=== PATIENT | female | born 1990 | race Caucasian/White ===

== ENCOUNTER 2019-02-06 14:00 | Inpatient (IN) | payer OTHER ==
[~2019-02-06] VITALS: Ht 157.5 cm; Wt 69.9 kg
[2019-02-11] MEDS ORDERED: PRENATAL TABLE1 EACH PO (13:34)
[2019-02-11] MEDS ORDERED: SYNTHROID50 MCG PO (13:35)
== END 2019-02-13 16:04 | disposition home or self-care (01) | DRG 768 ==
LOC: OB/GYN 02-11 11:50 → LDR 02-11 11:50 → OB/GYN 02-11 20:23
PROVIDERS: ADMIT Obstetrics & Gynecology
PROC: 10E0XZZ Delivery of Products of Conception, External Approach (ICD-10-PCS; principal; 2019-02-11)
PROC: 0DQR0ZZ Repair Anal Sphincter, Open Approach (ICD-10-PCS; 2019-02-11)
PROC: 3E033VJ Introduction of Other Hormone into Peripheral Vein, Percutaneous Approach (ICD-10-PCS; 2019-02-11)
PROC: 4A1HXCZ Monitoring of Products of Conception, Cardiac Rate, External Approach (ICD-10-PCS; 2019-02-11)
DX: O70.21 Third degree perineal laceration during delivery, IIIa (principal); Z37.0 Single live birth; Z3A.39 39 weeks gestation of pregnancy